=== PATIENT | female | born 1950 | race Caucasian/White ===

== ENCOUNTER 2023-07-21 22:07 | Outpatient (CLI) | payer MEDICARE, SELFPAY ==
[2023-07-21 19:16] LABS: Alanine Aminotransferase 26 U/L (12-78); Albumin Level 3.8 g/dl (3.5-5.0); Albumin/Globulin Ratio 1.3 (1.1-1.8); Alkaline Phosphatase 102 U/L (38-126); Anion Gap 11.4 mEq/L (5-15); Aspartate Amino Transferase 24 U/L (14-36); Bilirubin,Total 0.5 mg/dl (0.2-1.3); Blood Urea Nitrogen 16 mg/dl (7-17); Calcium 9.4 mg/dl (8.4-10.2); Carbon Dioxide 38 mmol/L (22.0-30.0); Chloride 94 mmol/L (98-107); Chol/HDL Ratio 5.1 (1-3.5); Cholesterol 152 mg/dl (140-200); Estimated Glomerular Filt Rate 82 ml/min (>60); GFR (African American) 100 ML/MIN (>60); Globulin 2.9 g/dL (1.3-3.2); Glucose 282 mg/dl (74-100); HDL Cholesterol 30 mg/dl (40-60); Potassium 3.4 mmoL/L (3.5-5.1); Sodium 140 mmol/L (136-145); Total Protein,Serum 6.7 g/dl (6.3-8.2); Triglycerides 219 mg/dl (30-150); VLDL Cholesterol 44 mg/dL (0-40)
[2023-07-21 19:26] LABS: Direct LDL Cholesterol 69.37 mg/dL (100-129)
[2023-07-21 19:46] LABS: Thyroid Stimulating Hormone 2.38 uIU/mL (0.465-4.68)
[2023-07-22 00:15] LABS: Hemoglobin A1C 11.1 % (4.0-6.0)
== END 2023-07-21 23:59 ==
PROVIDERS: PCP Family Medicine; Visit Provider Family Medicine
DX: E78.5 Hyperlipidemia, unspecified (principal); I10 Essential (primary) hypertension; E11.9 Type 2 diabetes mellitus without complications; Z79.84 Long term (current) use of oral hypoglycemic drugs
CPT/HCPCS: 80053; 80061; 83036; 84443

== ENCOUNTER 2023-10-31 11:39 | Outpatient (CLI) | payer MEDICARE, SELFPAY ==
[2023-10-31 21:18] LABS: Alanine Aminotransferase 25 U/L (12-78); Albumin Level 3.7 g/dl (3.5-5.0); Albumin/Globulin Ratio 1.2 (1.1-1.8); Alkaline Phosphatase 113 U/L (38-126); Anion Gap 14.2 mEq/L (5-15); Aspartate Amino Transferase 26 U/L (14-36); Bilirubin,Total 0.7 mg/dl (0.2-1.3); Blood Urea Nitrogen 17 mg/dl (7-17); Calcium 9.4 mg/dl (8.4-10.2); Carbon Dioxide 37 mmol/L (22.0-30.0); Chloride 89 mmol/L (98-107); Estimated Glomerular Filt Rate 82 ml/min (>60); GFR (African American) 99 ML/MIN (>60); Globulin 3.1 g/dL (1.3-3.2); Glucose 325 mg/dl (74-100); Potassium 3.2 mmoL/L (3.5-5.1); Sodium 137 mmol/L (136-145); Total Protein,Serum 6.8 g/dl (6.3-8.2)
[2023-10-31 22:24] LABS: Hemoglobin A1C 12.2 % (4.0-6.0)
[2023-10-31 22:35] LABS: Creatinine,Urine Random 158 mg/dL (Not Estab.)
[2023-10-31 22:40] LABS: Microalbumin/Creatinine Ratio 57.4
== END 2023-10-31 23:59 | disposition home or self-care (01) ==
LOC: LAB.DROPOF 11-01 11:39
PROVIDERS: PCP Nurse Practitioner; Visit Provider Nurse Practitioner
DX: E11.9 Type 2 diabetes mellitus without complications (principal); Z00.00 Encounter for general adult medical examination without abnormal findings; N10 Acute pyelonephritis; Z79.899 Other long term (current) drug therapy
CPT/HCPCS: 80053; 82043; 82570; 83036